=== PATIENT | female | born 1955 | race Caucasian/White ===

== ENCOUNTER 2024-05-30 14:48 | Emergency (ER) | payer MEDICARE, OTHER ==
[~2024-05-30] VITALS: Ht 165.1 cm; Wt 59.5 kg
[~2024-05-30 14:48] MED LIST: CARB-60 PO; CITA-144 PO; CYCL-448 PO; HYDR-4808 PO
[2024-05-30] MEDS ORDERED: CIPR10DR10 OD (19:35)
[2024-05-30] MEDS ORDERED: PERM60CR19 TP (19:36)
[2024-05-30] MEDS ORDERED: PERMETHRIN 1% 60 ML LOTION TP ONE (19:45)
[2024-05-30 20:23] VITALS: BP 127/77; PULSE 86; RESP 16; TEMP 97.3; O2SAT 97
== END 2024-05-30 20:29 | disposition home or self-care (01) ==
LOC: EMS 14:48
DX: H10.89 Other conjunctivitis (principal); B86 Scabies; F17.210 Nicotine dependence, cigarettes, uncomplicated; F12.90 Cannabis use, unspecified, uncomplicated; F15.10 Other stimulant abuse, uncomplicated
CPT/HCPCS: 99283; 99406